=== PATIENT | male | born 1985 | race Caucasian/White ===

== ENCOUNTER 2017-03-23 11:35 | Inpatient (IN) | payer OTHER ==
[~2017-03-23] VITALS: Ht 175.3 cm; Wt 110.7 kg
[2017-03-23 12:44] LABS: BASOPHIL % 0.1 % (0-2); PLATELET COUNT 175 x10^3mcL (130-400); RED CELL DISTRIBUTION WIDTH 12.8 % (11.5-14.5)
[2017-03-23 13:04] LABS: UA SPECIFIC GRAVITY 1.025 (1.005-1.035); microscopic required? YES; urine erythrocyte 1+ (NEGATIVE)
[2017-03-23] MEDS ORDERED: METFORMIN HCL500 MG PO (13:19)
[2017-03-23 14:34] VITALS: BP 140/97
[2017-03-23 21:05] VITALS: BP 146/100
[2017-03-24 00:32] LABS: SODIUM SERUM 134 mmol/L (136-145)
[2017-03-24 00:33] LABS: CARBON DIOXIDE 22 mmol/L (21-32); CHLORIDE SERUM 96 mmol/L (98-107); POTASSIUM SERUM 3.9 mmol/L (3.5-5.1)
[2017-03-24 00:34] LABS: CREATININE SERUM 0.7 mg/dL (0.7-1.3); GFR1 > 60 mL/min; GLUCOSE SERUM 332 mg/dL (74-106)
[2017-03-24 00:35] LABS: ALBUMIN 3.5 g/dL (3.4-5.0); ALT/SGPT 79 U/L (16-63); AST/SGOT 32 U/L (15-37); BILIRUBIN TOTAL 1.5 mg/dL (0.20-1.00); CALCIUM 7.6 mg/dL (8.5-10.1); TOTAL PROTEIN, SERUM 6.8 g/dL (6.4-8.2)
[2017-03-24 00:37] LABS: ALKALINE PHOSPHATASE 78 U/L (46-116)
[2017-03-24 00:58] LABS: LIPASE 10437 IU/L (73-393)
[2017-03-24 01:38] VITALS: BP 141/90
[2017-03-24 05:24] VITALS: BP 138/93
[2017-03-24 05:25] VITALS: BP 138/93
[2017-03-24 06:05] LABS: PLATELET COUNT 149 x10^3mcL (130-400); RED CELL DISTRIBUTION WIDTH 13.8 % (11.5-14.5)
[2017-03-24 06:34] LABS: CALCIUM 7.2 mg/dL (8.5-10.1); CARBON DIOXIDE 21.7 mmol/L (21-32); CHLORIDE SERUM 96 mmol/L (98-107); CREATININE SERUM 0.7 mg/dL (0.7-1.3); GFR1 > 60 mL/min; GLUCOSE SERUM 312 mg/dL (74-106); POTASSIUM SERUM 3.7 mmol/L (3.5-5.1); SODIUM SERUM 132 mmol/L (136-145)
[2017-03-24 10:31] VITALS: BP 145/98
[2017-03-24 10:38] LABS: ATYPICAL LYMPH 1 %; BAND NEUTROPHIL 25 % (0-10); BASOPHIL 0 % (0-2); METAMYELOCTE 1 % (0-2); MONOCYTE 7 % (0-7); SEGMENTED NEUTROPHILS 57 % (37-75)
[2017-03-24 13:12] LABS: AMPHETAMINE QUAL UR NONE DETECTED (NEG <=1000)
[2017-03-24 16:56] VITALS: BP 120/71
[2017-03-24 20:58] VITALS: BP 128/77
[2017-03-25 06:01] VITALS: BP 135/89
[2017-03-25 06:26] LABS: BASOPHIL % 0.2 % (0-2); RED CELL DISTRIBUTION WIDTH 13.2 % (11.5-14.5)
[2017-03-25 06:41] LABS: CALCIUM 7.8 mg/dL (8.5-10.1); CARBON DIOXIDE 27.2 mmol/L (21-32); CHLORIDE SERUM 99 mmol/L (98-107); GFR1 > 60 mL/min; GLUCOSE SERUM 222 mg/dL (74-106); LIPASE 874 IU/L (73-393); MAGNESIUM 2.3 mg/dL (1.8-2.4); PHOSPHOROUS 2.3 mg/dL (2.5-4.9); POTASSIUM SERUM 3.6 mmol/L (3.5-5.1); SODIUM SERUM 133 mmol/L (136-145)
[2017-03-25 06:44] LABS: AMYLASE 193 U/L (25-115)
[2017-03-25 06:51] LABS: PLATELET COUNT 110 x10^3mcL (130-400)
[2017-03-25 09:35] VITALS: BP 131/83
[2017-03-25] MEDS ORDERED: ZES5 PO (11:58)
== END 2017-03-25 13:00 | disposition home or self-care (01) | DRG 282 ==
LOC: ED 11:35 → DU 13:20 → MU 13:20 → DU 14:29 → MU 22:00
PROVIDERS: Emergency Medicine; ADMIT Family Medicine
DX: K85.20 Alcohol induced acute pancreatitis without necrosis or infection (principal); N17.0 Acute kidney failure with tubular necrosis; D75.1 Secondary polycythemia; E11.65 Type 2 diabetes mellitus with hyperglycemia; K76.0 Fatty (change of) liver, not elsewhere classified; E86.0 Dehydration; F10.10 Alcohol abuse, uncomplicated; I10 Essential (primary) hypertension; Z68.36 Body mass index [BMI] 36.0-36.9, adult; Z79.84 Long term (current) use of oral hypoglycemic drugs
CPT/HCPCS: 82962; 83880; B4164; G0480; J1170; J2060; J2270; J2405; J2543; J7030; J7042; Q0092

== ENCOUNTER 2017-10-27 16:48 | Emergency (ER) | payer OTHER ==
[~2017-10-27] VITALS: Ht 170.2 cm; Wt 105.2 kg
[~2017-10-27 16:48] MED LIST: METFORMIN HCL500 MG PO; ZES5 PO
[2017-10-27 17:09] VITALS: Ht 170.2 cm; Wt 105.2 kg
[2017-10-27 21:42] VITALS: BP 139/83
== END 2017-10-27 21:35 | disposition home or self-care (01) ==
LOC: ED 16:48
DX: J18.0 Bronchopneumonia, unspecified organism (principal); R53.81 Other malaise; E11.9 Type 2 diabetes mellitus without complications
CPT/HCPCS: J0696; J1885

== ENCOUNTER 2018-05-20 02:05 | Emergency (ER) | payer MEDICAID ==
[~2018-05-20] VITALS: Ht 182.9 cm; Wt 90.7 kg
[2018-05-20 02:32] VITALS: Ht 182.9 cm; Wt 90.7 kg
[2018-05-20 04:19] LABS: BASOPHIL % 0.1 % (0-2); PLATELET COUNT 179 x10^3mcL (130-400)
[2018-05-20 04:47] LABS: CALCIUM 8.4 mg/dL (8.5-10.1); CHLORIDE SERUM 97 mmol/L (98-107); CREATININE SERUM 0.9 mg/dL (0.7-1.3); GFR1 > 60 mL/min; GLUCOSE SERUM 402 mg/dL (74-106); POTASSIUM SERUM 3.8 mmol/L (3.5-5.1); SODIUM SERUM 133 mmol/L (136-145)
[2018-05-20 04:51] LABS: ALBUMIN 3.5 g/dL (3.4-5.0); ALKALINE PHOSPHATASE 103 U/L (46-116); ALT/SGPT 78 U/L (16-63); TOTAL PROTEIN, SERUM 6.9 g/dL (6.4-8.2)
[2018-05-20 04:55] LABS: CHOLESTEROL 204 mg/dL (<200)
[2018-05-20 05:09] LABS: AST/SGOT 104 U/L (15-37)
[2018-05-20 07:56] VITALS: BP 135/87
== END 2018-05-20 07:56 | disposition home or self-care (01) ==
LOC: ED 02:05
PROVIDERS: Specialist
DX: R56.9 Unspecified convulsions (principal); E11.65 Type 2 diabetes mellitus with hyperglycemia
CPT/HCPCS: 82962; 83880; G0480; J1815; J7030

== ENCOUNTER 2018-09-10 23:22 | Emergency (ER) | payer MEDICAID ==
[~2018-09-10] VITALS: Ht 172.7 cm; Wt 99.8 kg
[2018-09-10 23:27] VITALS: Ht 172.7 cm; Wt 99.8 kg
[2018-09-11 00:04] LABS: BASOPHIL % 0.6 % (0-2); PLATELET COUNT 195 x10^3mcL (130-400); RED CELL DISTRIBUTION WIDTH 12.9 % (11.5-14.5)
[2018-09-11 00:23] LABS: CALCIUM 8.5 mg/dL (8.5-10.1); CARBON DIOXIDE 24.6 mmol/L (21-32); CHLORIDE SERUM 101 mmol/L (98-107); GFR1 > 60 mL/min; GLUCOSE SERUM 153 mg/dL (74-106); POTASSIUM SERUM 3.6 mmol/L (3.5-5.1); SODIUM SERUM 136 mmol/L (136-145)
[2018-09-11 00:29] LABS: ALBUMIN 3.5 g/dL (3.4-5.0); BILIRUBIN TOTAL 0.8 mg/dL (0.20-1.00)
[2018-09-11 00:30] LABS: ALKALINE PHOSPHATASE 77 U/L (46-116); ALT/SGPT 42 U/L (16-63); AST/SGOT 13 U/L (15-37)
[2018-09-11 02:48] VITALS: BP 123/73
== END 2018-09-11 02:48 | disposition home or self-care (01) ==
LOC: ED 23:22
PROVIDERS: Emergency Medicine
DX: R56.9 Unspecified convulsions (principal); E11.9 Type 2 diabetes mellitus without complications
CPT/HCPCS: 82962; G0480; J7030

== ENCOUNTER 2020-04-25 17:30 | Emergency (ER) | payer OTHER ==
[~2020-04-25] VITALS: Ht 177.8 cm; Wt 103.0 kg
[2020-04-25 17:44] VITALS: BP 154/99
== END 2020-04-25 17:49 | disposition home or self-care (01) ==
LOC: ED 17:30
DX: L03.113 Cellulitis of right upper limb (principal); E11.9 Type 2 diabetes mellitus without complications

== ENCOUNTER 2020-04-28 21:59 | Emergency (ER) | payer OTHER ==
[~2020-04-28] VITALS: Ht 170.2 cm; Wt 102.6 kg
[2020-04-28 22:25] VITALS: Ht 170.2 cm; Wt 102.6 kg
[2020-04-29 00:13] VITALS: BP 142/88
== END 2020-04-29 00:13 | disposition home or self-care (01) ==
LOC: ED 21:59
DX: L03.113 Cellulitis of right upper limb (principal)
CPT/HCPCS: J0690